=== PATIENT | male | born 1990 | race Caucasian/White ===

== ENCOUNTER 2017-11-09 02:35 | Emergency (ER) | payer SELFPAY ==
[~2017-11-09 02:35] MED LIST: HYDR-385 PO
--- NOTE | 2017-11-09 02:37 | ER Report ---
History and Physical Time Seen By MD: 02:37 HPI/ROS CHIEF COMPLAINT: Fdc clearance HISTORY OF PRESENT ILLNESS: This is a 27-year-old male. He was brought to the ER by the [place] [employer]. He was found intoxicated and trying to sleep on the front porch of one of the local bars. He does not remember where he lives. He denies any health problems. He denies any pain. No history of any injury or signs of injury from the [place] police. He denies any chest pain or shortness of breath. No pain in the arms or legs. No pain in the back or neck. REVIEW OF SYSTEMS: Respiratory: No cough, no dyspnea. Cardiovascular: No chest pain, no palpitations. Gastrointestinal: No vomiting, no abdominal pain. Neuro: No headache. Allergies: Coded Allergies: No Known Drug Allergies (Unverified , 09/24/16) Home Meds Discontinued Scripts Hydrocodone Bit/Acetaminophen (HYDROCODON-ACETAMINOPHEN 5-325) 1 Each Tablet, 1 EACH PO Q4-6H Y for PAIN, #10 TAB Prov:CHRISTINE ALFONSO [employer] 09/24/16 Reviewed Nurses Notes: Yes Constitutional Vital Sign - Last 24 Hours 11/09/17 02:38 Temp 97.6 Pulse 108 Resp 16 B/P (MAP) 145/89 Pulse Ox 93 O2 Delivery Room Air Physical Exam General Appearance: Alert, intoxicated. Cooperative. Eyes: Pupils equal and round, has scleral injection, pupils are reactive to light, extraocular movements intact. ENT: Normal oral mucosa. Moist mucous membranes. Tympanic membranes are normal. Neck: Neck is supple and non tender. Respiratory: Chest is non tender, lungs are clear to auscultation. Cardiac: regular rate and rhythm normal pulses and capillary refill. Gastrointestinal: Abdomen is soft and non tender, nondistended, bowel sounds normal. Musculoskeletal: Extremities have full range of motion. Non tender to palpations in the extremities. No pain on palpation of the neck or back. Neuro: Alert to self, in place, not to time. Skin: No rashes or lesions. DIFFERENTIAL DIAGNOSIS: After history and physical exam differential diagnosis was considered for intoxication, no signs of injury or other medical problem Medical Decision Making ED Course/Re-evaluation ED Course Fdc clearance, no problems noted. Cleared to be discharged with the [place] [employer] to senior care. Decision to Disposition Date: Nov 09, 2017 Decision to Disposition Time: 02:43 Depart Departure Latest Vital Signs Vital Signs Date Time Temp Pulse Resp B/P (MAP) Pulse Ox O2 Delivery O2 Flow Rate FiO2 11/09/17 02:38 97.6 108 16 145/89 93 Room Air Impression: Primary Impression: Alcohol intoxication Condition: Condition Unchanged Disposition: [facility] TO PENITENTIARY/CORRECTIONAL F Patient Instructions: Alcohol Intoxication (ED) Problem Qualifiers Primary Impression: Alcohol intoxication Complication of substance-induced condition: uncomplicated Qualified Codes: F10.920 - Alcohol use, unspecified with intoxication, uncomplicated CRICKET FLETCHER MD Nov 09, 2017 02:37
[2017-11-09 02:38] VITALS: BP 145/89
== END 2017-11-09 02:47 ==
LOC: ER 02:39
DX: Z02.89 Encounter for other administrative examinations (principal); F10.920 Alcohol use, unspecified with intoxication, uncomplicated
CPT/HCPCS: 99282

== ENCOUNTER 2018-08-30 18:03 | Emergency (ER) | payer OTHER ==
[2018-08-30] MEDS ORDERED: GLYCOPYRROLATE 0.2MG/ML 1 ML INJ IVP ONE (18:15)
[2018-08-30] MEDS ORDERED: ONDANSETRON 4 MG/2 ML VIAL IVP ONE (18:15)
[2018-08-30] MEDS ORDERED: NS(*) 0.9% 1000 ML BAG 1,000 ML IV ONE (18:15)
--- NOTE | 2018-08-30 18:22 | ER Report ---
History and Physical Time Seen By MD: 18:10 Hx. of Stated Complaint: ATE SAUSAGE AT 0900. STARTED FEELING SICK THIS AFTERNOON WITH NASUEA VOMITTING AND DIARRHEA HPI/ROS CHIEF COMPLAINT: Vomiting, diarrhea HISTORY OF PRESENT ILLNESS: 28-year-old male presents with vomiting and significant discomfort, states he ate sausage at 9 this morning at work and feels like he got food poisoning from this. He is admitted multiple episodes of vomiting as well as loose stool. No bloody or black. Attempted antidiarrheal without success. Currently is extremely nauseous and vomiting clear fluid. Patient complains of stomach cramping though no focal stomach pain. He has no other acute symptoms. He has no medical problems and no known allergies. He has no sick contacts REVIEW OF SYSTEMS: Constitutional: No fever, no chills. Eyes: No discharge. ENT: No sore throat. Cardiovascular: No chest pain, no palpitations. Respiratory: No cough, no shortness of breath. Gastrointestinal: above Genitourinary: no dysuria Musculoskeletal: No back pain. Skin: No rashes. Neurological: No headache. Remainder of the 14 system rev: Yes Allergies: Coded Allergies: No Known Drug Allergies (Unverified , 08/30/18) Reviewed Nurses Notes: Yes Constitutional Vital Sign - Last 24 Hours 08/30/18 18:06 Temp 98.0 Pulse 104 Resp 20 B/P (MAP) 127/70 Pulse Ox 97 O2 Delivery Room Air Physical Exam General Appearance: The patient is alert, has no immediate need for airway protection and no signs of toxicity. Eyes: Pupils equal and round no pallor or injection. ENT, Mouth: Mucous membranes are moist. Respiratory: There are no retractions, lungs are clear to auscultation. Cardiovascular: borderline tachcyardia Gastrointestinal: hyperactive bowel sounds, no focal ttp Neurological: alert, oriented, agitated, nauseous Skin: Warm and dry, no rashes. Musculoskeletal: Extremities are nontender, nonswollen and have full range of motion. DIFFERENTIAL DIAGNOSIS: After history and physical exam differential diagnosis was considered for surgical abdomen, bowel obstruction, acute gastroenteritis, or other emergent etiology of symptoms. Medical Decision Making ED Course/Re-evaluation ED Course pt presents with vomiting > diarrhea. Initially significantly uncomfortable however upon rpt exam, no abd ttp, bs nl, and pt traci ice chips. Doubt acute abd. At this point will d/c wtih SRP's Decision to Disposition Date: August 30, 2018 Decision to Disposition Time: 18:53 Depart Departure Latest Vital Signs Vital Signs Date Time Temp Pulse Resp B/P (MAP) Pulse Ox O2 Delivery O2 Flow Rate FiO2 08/30/18 18:06 98.0 104 20 127/70 97 Room Air Impression: Primary Impression: Vomiting and diarrhea Condition: Improved Disposition: HOME OR SELF-CARE New Scripts Ondansetron 4 Mg Odt (ONDANSETRON 4 MG ODT) 4 Mg Tab.rapdis 4 MG PO Q6-8H for Nausea, #10 TAB Prov: RAYRAY OWUSU MD 08/30/18 Patient Instructions: Acute Nausea and Vomiting (ED) Additional Instructions: Please return for uncontrolled symptoms, concerning abdominal pain, fevers, or any concerns. RAYRAY OWUSU MD August 30, 2018 18:22
[2018-08-30 18:30] VITALS: BP 125/78
[2018-08-30] MEDS ORDERED: ONDANSETRON 4 MG ODT TH SL ONE (18:55)
[2018-08-30] MEDS ORDERED: KETOROLAC 15 MG/ML VIAL IVP ONE (18:55)
[2018-08-30] MEDS ORDERED: ONDA4TAB9 PO (18:56)
== END 2018-08-30 19:07 | disposition home or self-care (01) ==
LOC: ER 18:30
DX: R11.2 Nausea with vomiting, unspecified (principal)
CPT/HCPCS: 96361; 96374; 96375; 99284; J1885; J2405; J3490; J7030; S0119